=== PATIENT | female | born 1950 | race Caucasian/White ===

== ENCOUNTER 2017-01-25 08:44 | Inpatient (IN) | payer BC, MEDICARE ==
[2017-01-18 14:03] LABS: HEMATOCRIT 34.6 % (36.0-48.0)
[2017-01-18 14:20] LABS: CHLORIDE, SERUM 100 MMOL/L (96-112); CO2 (CARBON DIOXIDE) 30 MMOL/L (24-34); CREATININE 0.72 MG/DL (0.55-1.02); GFR AFRICAN AMERICAN 101 ML/MIN (>=60); GFR NON AFRICAN AMERICAN 87 ML/MIN (>=60); GLUCOSE, SERUM 129 MG/DL (60-99); POTASSIUM, SERUM 3.8 MMOL/L (3.5-5.3); SODIUM, SERUM 139 MMOL/L (135-148)
[2017-01-18 14:24] LABS: BUN (BLOOD UREA NITROGEN) 12 MG/DL (6-23); CALCIUM, SERUM 9.4 MG/DL (8.5-10.4)
--- NOTE | ~2017-01-25 | OP ---
Record Of Operation [facility] [address] [place]. [address] NAME: ROLANDA FORTE : 50 STATUS : ADM IN PAT#: [id number] AGE: 66 ADM/REG DATE : 01/25/17 MR#: [id number] REPORT SERV DATE: 01/28/17 DICTATED BY: RONNIE RICKETTS II DATE: 01/27/17 REPORT STATUS : Draft TRANSCRIBED BY: MODL DATE: 01/27/17 DATE OF PROCEDURE: 01/25/2017 PREOPERATIVE DIAGNOSES: 1. T12-L1, nonunion. 2. 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 3. Kyphotic deformity with thoracolumbar pain. POSTOPERATIVE DIAGNOSES: 1. T12-L1, nonunion. 2. 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 3. Kyphotic deformity with thoracolumbar pain. PROCEDURES: 1. T9-T10, T10-T11, T11-T12, T12-L1 posterolateral arthrodesis. 2. Instrumentation at T9-L1. 3. Early-Chavis osteotomies at T10-T11, T11-T12. 4. Use of local autograft, allograft substitute, and bone morphogenic protein. 5. Use of the stereotactic guidance system. SURGEON: Ronnie Ricketts M.D. FLUIDS: 2 L of lactated Ringer's. ESTIMATED BLOOD LOSS: 200 mL. DRAINS: One drain. COMPLICATIONS: None. ANTIBIOTIC: Preoperatively. PREOPERATIVE HISTORY: This is a very friendly 66-year-old female, well known to me from the past. She has had multiple surgeries prior to me taking her on as a patient. She has been a very pleasant patient. She unfortunately had a significant amount of degenerative disk disease prior to any surgery ever having been done. She even has significant thoracic degenerative disk disease. She unfortunately continues to develop adjacent segment degeneration. I felt that going ahead and going up higher into the thoracic spine should give her a reasonable chance of decreasing her back pain as well as improving upon her sagittal balance. We discussed the pros and cons of the surgery. She was in pain management. We discussed the merits of potentially changing medications and trying other nonoperative care measures. She is psychologically very appropriate and overall continues to function reasonably well given her disability. We did see focal kyphosis above the previous surgery as well as some loosening about the T12 screws. I felt that she likely had a nonunion at this level, and again if we could go up higher with better fixation, I felt we could likely improve her sagittal balance and decrease her pain to a certain degree. Record Of Operation [facility] [address] [place]. [address] NAME: ROLANDA FORTE : 50 STATUS : ADM IN PAT#: [id number] AGE: 66 ADM/REG DATE : 01/25/17 MR#: [id number] REPORT SERV DATE: 01/28/17 DICTATED BY: RONNIE RICKETTS II DATE: 01/27/17 REPORT STATUS : Draft TRANSCRIBED BY: HAMIDA DATE: 01/27/17 DESCRIPTION OF PROCEDURE: After informed consent was obtained, the patient was brought to the operating room at her request and general anesthesia achieved. She was placed in the prone position, and the back was prepped and draped in a sterile fashion. The incision was then made from approximately T8 down to L2. The dissection was performed and subperiosteal exposure was completed. The dissection was performed and the stereotactic clamp placed at approximately T8 followed by completion of the intraoperative CT scan. Stereotactic guidance was then used throughout the case. At this point, we then began placing thoracic pedicle screws. Unfortunately, we encountered severely sclerotic bone at multiple levels which increased the difficulty in keeping the screw within the vertebral body. The screws were finally acceptably placed and confirmed under repeat CT scan. It took us several scans to eventually achieve a reasonable construct. Adequate screw fixation was placed, and again, the bone quality was very rigid. At this point, we then used august-to-august connectors by [employer]. This allowed bilateral fixation and allowed connecting to the previous hardware. At this point, we then had performed pedicular instrumentation from T9-L1 followed by irrigation. Decortication was now performed from T9 down to L1 and punctate bleeding bone identified at the posterior elements. Local autograft, allograft substitute, and bone morphogenic protein were placed along these decorticated surfaces. The rods were then under contoured and final tightening performed to improve her sagittal balance. At this point, a deep drain was placed followed by a standard closure. The patient was then extubated and transferred to PACU in stable condition. NIKUNJ/HAMIDA Ronnie Ricketts II, M.D. / [id number] CC: Dutch Arrington II, M.D. Michael Douglas, M.D.
--- NOTE | ~2017-01-25 | DS ---
Discharge Summary [facility] [address] [place]. [address] NAME: ROLANDA FORTE : 50 STATUS : DIS IN PAT#: [id number] AGE: 66 ADM/REG DATE : 01/25/17 MR#: [id number] REPORT SERV DATE: 02/08/17 DICTATED BY: RONNIE RICKETTS II DATE: 02/07/17 REPORT STATUS : Draft TRANSCRIBED BY: HAMIDA DATE: 02/07/17 Data Collection from hospitalization DISCHARGE DIAGNOSES: 1. T12-L1 nonunion. 2. 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 3. Kyphotic deformity with thoracolumbar pain. 4. Hypertension. 5. Rheumatoid arthritis. 6. Gastroesophageal reflux disease. 7. Anxiety. 8. Obstructive sleep apnea. 9. Depression. 10.Neuropathy. CONSULTATIONS: None. PROCEDURES: T9-T10, T10-T11, T11-T12, T12-L1 posterolateral arthrodesis; instrumentation at T9-L1; Early-Chavis osteotomies at T10-T11, T11-T12; use of local autograft, allograft substitute, and bone morphogenic protein; use of stereotactic guidance system on 01/25/2017. PATHOLOGY: Vertebral bone and soft tissue, thoracic and lumbar spine-degenerative changes (no crystals). DISCHARGE MEDICATIONS: Edarbi 80 mg every morning, Hygroton 25 mg every morning, vitamin B12 1000 mcg every morning, Valium 10 mg every 6 hours as needed, levothyroxine 75 mcg every morning, MS Contin 60 mg three times a day, Roxicodone 15 to 30 mg every 4 hours as needed. She was instructed not to continue Avinza or Percocet. CONDITION ON DISCHARGE: Stable. DISPOSITION: The patient was discharged home on a regular diet with activities as instructed. She would follow up with me on 02/18/2017. HOSPITAL COURSE: This is a 66-year-old female, who complained of lumbar related symptoms. The symptoms were located in the mid lower back with constant aches with radiation into the left foot which was sharp shooting pain associated with numbness, tingling, and weakness. The patient has T12-L1 nonunion and sagittal imbalance with supra-adjacent proximal junctional kyphosis and kyphotic deformity with thoracolumbar pain. Treatment options were discussed and it was elected to proceed with surgical intervention. She was admitted to the hospital at this time for further evaluation and treatment. Upon admission, she was taken to the operating room, where she underwent the above-mentioned procedure. She tolerated this well. There were no complications. On postop day #1, she was stable. She had a normal respiratory effort. She did have some spasm. She continued to progress. Discharge planning was performed. She was evaluated by Physical Therapy. On 01/30/2017, she remained stable. Discharge instructions were given. Due to her improved and stable condition, she was discharged home with the above-stated instructions. Discharge Summary [facility] [id number] [place]. [address] NAME: ROLANDA FORTE : 50 STATUS : DIS IN PAT#: [id number] AGE: 66 ADM/REG DATE : 01/25/17 MR#: [id number] REPORT SERV DATE: 02/08/17 DICTATED BY: RONNIE RICKETTS II DATE: 02/07/17 REPORT STATUS : Draft TRANSCRIBED BY: HAMIDA DATE: 02/07/17 Information collected by: Litzy Jacobs I submit the above information as my discharge summary. JULIA/HAMIDA Ronnie Ricketts II, M.D. / [id number] CC: Dutch Arrington II, M.D.
[~2017-01-25 08:44] MED LIST: ACCU20 PO; ACCUPRIL40 MG PO; AMB10 PO; AQUASOL E50 UNT/ML PO; ASA5GR PO; ATV.5 PO; AVINZA30 PO; BENICAR40 PO; BYSTOLIC10 MG PO; CYANO1000T PO; CYMBALTA30 PO; CYMBALTA60 PO; DIL4TAB PO; DOLOPHINE10 MG PO; EDARBI80 MG PO; ENDOCET1 TA3 PO; HYGROTON 25 MG25 MG OR; HYGROTON 25 MG25 MG PO; LEVOTHYROXIN75 MCG PO; LOP25 PO; METHADOSE10 MG PO; METHOC500B PO; MSCONTIN PO; NEUR100 PO; NIFEDIAC CC30 MG PO; NOR25 PO; PAX10 PO; PERCOCET 10/3251 TAB PO; PERCOCET1 TA4 PO; PRAVACHOL40 MG PO; PREM9 PO; PREMARIN1.25 MG PO; PROTONIX PO; PROVIGIL2 PO; ROXICODONE30 MG PO; T PO; V5 PO; VITAMIN D31000 UNIT PO; VITE PO; WELLXL150 PO
[2017-01-28] MEDS ORDERED: VALIUM10 MG PO (09:38)
[2017-01-28] MEDS ORDERED: ROXICODONE15 MG PO (09:38)
[2017-01-28] MEDS ORDERED: MSCONT60 PO (09:47)
[2017-01-29 11:38] LABS: HEMATOCRIT 27.6 % (36.0-48.0)
== END 2017-01-30 14:30 | disposition home or self-care (01) | DRG 458 ==
LOC: SDC/OF 08:44 → PACU 16:23 → 3SO 16:46
PROVIDERS: Orthopaedic Surgery
PROC: 0RG7071 Fusion of 2 to 7 Thoracic Vertebral Joints with Autologous Tissue Substitute, Posterior Approach, Posterior Column, Open Approach (ICD-10-PCS; principal; 2017-01-25 10:45)
PROC: 0RGA071 Fusion of Thoracolumbar Vertebral Joint with Autologous Tissue Substitute, Posterior Approach, Posterior Column, Open Approach (ICD-10-PCS; 2017-01-25 10:45)
DX: M40.295 Other kyphosis, thoracolumbar region (principal); G62.9 Polyneuropathy, unspecified; I10 Essential (primary) hypertension; G47.33 Obstructive sleep apnea (adult) (pediatric); E03.9 Hypothyroidism, unspecified
CPT/HCPCS: 36415; 80048; 82962; 85014; 85018; 86850; 86900; 86901; 87641; 88304; 88311; 93005; 97116-GP; 97161-GP; A9270-GY; C1713; J0690; J1170; J2250; J2270; J2405; J2710; J3010